=== PATIENT | female | born 1955 | race African-American/Black ===

== ENCOUNTER → 2017-01-14 14:37 | Outpatient (CLI) | payer OTHER | END | disposition home or self-care (01) | LOC: D.MAMMO 13:00 | DX: Z12.31 Encounter for screening mammogram for malignant neoplasm of breast (principal) ==

== ENCOUNTER → 2018-08-15 10:00 | Outpatient (CLI) | payer OTHER | END | disposition home or self-care (01) | LOC: D.MAMMO 10:00 | PROVIDERS: ATTEND Family Medicine | DX: N63.0 Unspecified lump in unspecified breast (principal) ==

== ENCOUNTER → 2019-01-14 09:20 | Outpatient (CLI) | payer OTHER ==
--- NOTE | 2019-01-16 15:28 | ST ---
PATIENT:CLARA ANDRADE MEDICAL RECORD: [id number] SEX: F LOCATION:[facility] ORDER #: ADMISSION DATE: 01/14/19 AGE OF PATIENT: 63 REFERRING PHYSICIAN: INTERPRETING PHYSICIAN: SEVEN ALMEIDA MD DATE OF SERVICE: 01/14/2019 PROCEDURE: Nuclear stress test. INDICATION: Angina, abnormal ECG, hypertension, and hyperlipidemia. She was exercised on standard Lexiscan protocol with 33 mCi of sestamibi injected at peak stress, 11 mCi used previously for rest images. FINDINGS: Gated SPECT reveals preserved ejection fraction at 86% with good wall motion and thickening and brightening throughout all segments. SPECT imaging Cardiolite was used as myocardial fusion agent. There is homogeneous uptake throughout all segments at rest and stress with no evidence of inducible ischemia or previous infarction. OVERALL IMPRESSION: 1. This is a normal nuclear stress test with no evidence of inducible ischemia or previous infarction. 2. Gated SPECT reveals a preserved ejection fraction at 86%. In this patient with ongoing symptomatology, the current scan does not suggest the presence of hemodynamically significant coronary artery disease. Evaluate noncardiac etiology of chest pain. TRANSINT:[id number] Voice Confirmation ID: [id number] DOCUMENT ID: [id number] SEVEN ALMEIDA MD at 1528 CC: MAYCO GALLAGHER MD [id number] DICTATION DATE: 01/14/19 1445 CHOKER SETTER: 01/14/19 2326 DEP CLI 01/14/[address] [id number]
== END | disposition home or self-care (01) ==
LOC: D.HCCECHO 09:20
PROVIDERS: ATTEND Internal Medicine Interventional Cardiology
DX: I20.9 Angina pectoris, unspecified (principal); I10 Essential (primary) hypertension

== ENCOUNTER → 2019-01-19 10:30 | Outpatient (CLI) | payer OTHER ==
--- NOTE | 2019-01-20 14:03 | EC ---
PATIENT:CLARA ANDRADE DATE OF SERVICE: SEX: F MEDICAL RECORD: [id number] DATE OF : 57 LOCATION:[facility] AGE OF PATIENT: 63 ADMISSION DATE: 01/19/19 REFERRING PHYSICIAN: INTERPRETING PHYSICIAN: URSULA CHU MD ECHOCARDIOGRAM REPORT ECHO CHARGES Date: CLINICAL DIAGNOSIS: ECHOCARDIOGRAPHIC MEASUREMENTS (adult normal given) AC root (d.<3.7cm) cm LV Septum d (<1.2 cm> cm Valve Excursion cm LV Septum (systole) cm Left Atria (s.<4.0cm> cm LVPW d(<1.2cm) cm RV (d.<2.3cm) cm LVPW (sytole) cm LV diastole(<5.6CM) cm MV E-F(>70mm/sec) cm LV systole cm LVOT Diameter cm MV exc.(>10mm) cm Est.ejection fraction (50-75%) % DOPPLER: LVIT cm/sec A cm/sec E cm/sec LA cm/sec RVSP mmHg LVOT cm/sec AOP1/2T m/s Asc. Ao cm/sec RVOT cm/sec RA cm/sec PA cm/sec AV Gradient Peak mmHg AV Mean mmHg AV Area cm MV Gradient Peak mmHg MV Mean mmHg MV Area cm COMMENTS: Apprentice Stylist: Manager Of Selection And Assessment: DONITA# Pericardial Effusion DATE OF SERVICE: Adequate 2D, color flow, spectral Doppler, and M-mode. LVH is present. LV internal dimensions are normal. Wall motion is normal. EF is greater than or equal to 55%. Aortic valve is tricuspid. No evidence of stenosis by Doppler interrogation. Left atrium dilated at 4.6 cm. Mitral valve shows no prolapse. Mild MR. Right-sided chambers grossly normal. Trace TR. TRANSINT:[id number] Voice Confirmation ID: [id number] DOCUMENT ID: [id number] ECHOCARDIOGRAM REPORT [id number] CLARA ANDRADE URSULA CHU MD at 1403 CC: [id number] DICTATION DATE: 01/19/19 [address] DRIER: 01/19/19 1650 DEP CLI 01/19/19 [place] [id number] [place] [id number]
== END | disposition home or self-care (01) ==
LOC: D.MAMMO 09:00
PROVIDERS: ATTEND Family Medicine
DX: R92.8 Other abnormal and inconclusive findings on diagnostic imaging of breast (principal)